=== PATIENT | female | born 1965 | race Caucasian/White ===

== ENCOUNTER → 2017-01-02 | Outpatient (CLI) | payer OTHER ==
--- NOTE | 2017-01-02 08:10 | EKG REPORT ---
SEVERITY:- NORMAL ECG - SINUS RHYTHM : Confirmed by: Robin Recinos MD 02-Jan-2017 08:09:54
== END ==
LOC: OD 07:30
DX: K29.60 Other gastritis without bleeding (principal)
CPT/HCPCS: 93005; 93010

== ENCOUNTER 2017-04-29 21:01 | Emergency (ER) | payer OTHER ==
--- NOTE | 2017-04-29 21:40 | ER Document Report ---
ED Medical Screen (RME) - General Chief Complaint: R thumb injury Stated Complaint: FINGER INJURY Time Seen by Provider: 04/29/17 21:38 Mode of Arrival: Ambulatory Information source: Patient Notes: 51-year-old female presents to ED for slicing a large part of the distal thumb off including part of the nail afternoon. She states she was trying to slice with otitis with a mandolin and did not use the safety guard and just states she went to slice the potato she thought she should get the guard and is dislodged her finger off she said she did this about 130 this afternoon she is not on any blood thinners she thought she would be able to stay home and everything would be fine when she went to remove the dressing tonight she realizes that it was much worse than she thought. has a picture of the part of the thumb that was sliced off and thrown away. The bleeding is under control at the moment it has been wrapped up and she has been sent to x-ray. I have greeted and performed a rapid initial assessment of this patient. A comprehensive ED assessment and evaluation of the patient, analysis of test results and completion of medical decision making process will be conducted by an additional ED providers. TRAVEL OUTSIDE OF THE [place] IN LAST 30 DAYS: No - Related Data Allergies/Adverse Reactions: enoxaparin [From Lovenox] Allergy (Verified 04/29/17 21:05) Physical Exam - Vital signs Vitals: Temp Pulse Resp BP Pulse Ox 97.7 F 75 14 114/67 95 04/29/17 21:07 04/29/17 21:07 04/29/17 21:07 04/29/17 21:07 04/29/17 21:07 Course - Vital Signs Vital signs: Temp Pulse Resp BP Pulse Ox 97.7 F 75 14 114/67 95 04/29/17 21:07 04/29/17 21:07 04/29/17 21:07 04/29/17 21:07 04/29/17 21:07
--- NOTE | 2017-04-29 22:12 | RADIOLOGY REPORT (SQ) ---
EXAM DESCRIPTION: FINGER RIGHT COMPLETED DATE/TIME: 04/29/2017 9:53 pm REASON FOR STUDY: Cut tip of finger off COMPARISON: None. NUMBER OF VIEWS: Three views. TECHNIQUE: AP, lateral, and oblique images acquired of the right thumb. LIMITATIONS: None. FINDINGS: MINERALIZATION: Normal. BONES: No acute fracture or dislocation. No worrisome bone lesions. SOFT TISSUES: Skin laceration. No foreign body. OTHER: No other significant finding. IMPRESSION: Soft tissue injury. COMMENT: SITE OF TRAUMA/COMPLAINT MARKED/STAMP COMPLETED: YES. TECHNICAL DOCUMENTATION: JOB ID: [id number] [facility]- All Rights Reserved
--- NOTE | 2017-04-29 23:04 | ER Document Report ---
ED General - General Chief Complaint: R thumb injury Stated Complaint: FINGER INJURY Time Seen by Provider: 04/29/17 21:38 Mode of Arrival: Ambulatory Notes: Patient is a 51-year-old [id number] female, up-to-date on her tetanus immunization who presents after sustaining a tissue avulsion to her right thumb. She states that this occurred while using a mandolin to cut vegetables. She describes a severe, constant throbbing pain to the area. Touching the area worsens the pain. Nothing improves the pain. No history of similar injury in the past. She states that she came to the emergency department when she was unable to stop the bleeding at home but notes it has now stopped on its own. TRAVEL OUTSIDE OF THE [place] IN LAST 30 DAYS: No - Related Data Allergies/Adverse Reactions: enoxaparin [From Lovenox] Allergy (Verified 04/29/17 21:05) Past Medical History - General Information source: Patient - Social History Smoking Status: Never Smoker Frequency of alcohol use: None Drug Abuse: None Lives with: Spouse/Significant other Family History: Reviewed & Not Pertinent Patient has suicidal ideation: No Patient has homicidal ideation: No Renal/ Medical History: Denies: Hx Peritoneal Dialysis Review of Systems - Review of Systems Notes: Constitutional: Negative for fever. Eyes: Negative for visual changes. ENT: Negative for facial injury Cardiovascular: Negative for chest injury. Respiratory: Negative for shortness of breath. Gastrointestinal: Negative for abdominal injury. Genitourinary: Negative for genital injury Musculoskeletal: Positive for right thumb injury Skin: Positive for laceration/abrasions. Neurological: Negative for head injury. Physical Exam - Vital signs Vitals: Temp Pulse Resp BP Pulse Ox 97.7 F 75 14 114/67 95 04/29/17 21:07 04/29/17 21:07 04/29/17 21:07 04/29/17 21:07 04/29/17 21:07 Interpretation: Normal Notes: PHYSICAL EXAMINATION: GENERAL: Well-appearing, well-nourished and in no acute distress. HEAD: Atraumatic, normocephalic. EYES: sclera anicteric, conjunctiva are normal. ENT: Moist mucous membranes. NECK: Normal range of motion LUNGS: Normal work of breathing HEART: 2+ radial pulses bilaterally. Capillary refill is less than 1 second in all digits of the right hand EXTREMITIES: Full flexion extension against resistance at the DIP of the right thumb as well as the MCP. NEUROLOGICAL: No focal neurological deficits. Moves all extremities spontaneously and on command. PSYCH: Normal mood, normal affect. SKIN: Warm, Dry, normal turgor, skin avulsion of approximately 0.5 x 0.25 cm along the ulnar aspect of the right thumb with nailbed involvement Course - Re-evaluation Re-evalutation: 04/30/17 03:16 Patient presents with a soft tissue avulsion to the ulnar aspect of her right thumb sustained on a mandolin. She describes a severe pain to the area but there is no tissue to approximate. The nailbed has also been injured. X-ray without any evidence of an acute bony injury. The wound has been cleaned, dressed, and the patient has been provided wound healing instructions. At this time will discharge with return precautions and follow-up recommendations. Verbal discharge instructions given a the bedside and opportunity for questions given. Medication warnings reviewed. Patient is in agreement with this plan and has verbalized understanding of return precautions and the need for primary care follow-up in the next 24-72 hours. - Vital Signs Vital signs: Temp Pulse Resp BP Pulse Ox 98.1 F 68 18 113/63 99 04/29/17 23:27 04/29/17 23:27 04/29/17 23:27 04/29/17 23:27 04/29/17 23:27 - Diagnostic Test Radiology reviewed: Image reviewed, Reports reviewed Radiology results interpreted by me: 04/30/17 03:10 Right hand x-ray: No acute fracture or dislocation Discharge - Discharge Clinical Impression: Avulsion of soft tissue, Nailbed injury Injury of right thumb Qualifiers: Encounter type: initial encounter Qualified Code(s): S69.91XA - Unspecified injury of right wrist, hand and finger(s), initial encounter Condition: Good Disposition: HOME, SELF-CARE Additional Instructions: Return immediately if you develop spreading redness around the wound, pus from the wound, worsening pain, or a fever of >100.4. Keep the area clean and dry. Wash gently with soap and water twice daily and cover with antibiotic ointment then dress the wound. Your x-ray is normal and does not show any bony injury. For your pain: Take ibuprofen 600 mg and acetaminophen 1000 mg every 6 hours together as needed for pain.
[2017-04-29 23:29] VITALS: BP 113/63
== END 2017-04-29 23:20 | disposition home or self-care (01) ==
LOC: ER 21:01
DX: S61.101A Unspecified open wound of right thumb with damage to nail, initial encounter (principal); S69.91XA Unspecified injury of right wrist, hand and finger(s), initial encounter; W45.8XXA Other foreign body or object entering through skin, initial encounter
CPT/HCPCS: 99283